=== PATIENT | male | born 1980 | race Two or more races ===

== ENCOUNTER 2017-09-30 21:38 | Emergency (ER) | payer SELFPAY ==
[2017-09-30] MEDS ORDERED: LORAZEPAM INJ 2 MG/1 ML VIAL IV ONE (22:46)
[2017-09-30] MEDS ORDERED: NORMAL SALINE 1000 ML 1,000 ML IV ONE (22:46)
[2017-09-30] MEDS ORDERED: THIAMINE HCL 100 MG in NORMAL SALINE 50 ML IV ONE (22:48)
--- NOTE | 2017-09-30 22:48 | ER Document Report ---
ED General - General Chief Complaint: ETOH Abuse Stated Complaint: POSSIBLE ALCOHOL WITHDRAW Time Seen by Provider: 09/30/17 22:42 Notes: Patient is a 37-year-old male that comes emergency department for chief complaint of alcohol withdrawals. He states that his last drink was about 10 hours ago, he states he has never felt this bad with withdrawals in the past. He states he is lightheaded, his heart is racing, and cannot stop shaking. He denies history of seizures. He states that he used to drink the last but his dad , he moved here as a result, and he has been drinking heavily since he got here. He has been given Librium for withdrawal in the past, states he took four earlier today but then started to feel worse and came to be seen. He denies any daily medications, surgeries, or past medical history other than alcohol abuse. Denies SI or HI. Denies recreational drugs, states he use to use meth but hasn't in two years. TRAVEL OUTSIDE OF THE [place] IN LAST 30 DAYS: No - Related Data Allergies/Adverse Reactions: No Known Allergies Allergy (Verified 09/30/17 21:44) Home Medications: Current Home Medications Chlordiazepoxide HCl [Librium 25 mg Capsule] 1 cap PO QID 09/30/17 [History] Past Medical History - General Information source: Patient - Social History Smoking Status: Former Smoker Frequency of alcohol use: Heavy Drug Abuse: None Lives with: Friend Family History: Reviewed & Not Pertinent Patient has suicidal ideation: No Patient has homicidal ideation: No - Immunizations Immunizations up to date: Yes Review of Systems - Review of Systems Constitutional: See HPI EENT: No symptoms reported Cardiovascular: See HPI Respiratory: No symptoms reported Gastrointestinal: See HPI Genitourinary: No symptoms reported Male Genitourinary: No symptoms reported Musculoskeletal: No symptoms reported Skin: No symptoms reported Hematologic/Lymphatic: No symptoms reported Neurological/Psychological: No symptoms reported Physical Exam - Vital signs Vitals: Temp Pulse Resp BP Pulse Ox 98.2 F 124 H 16 141/90 H 95 09/30/17 21:50 09/30/17 21:50 09/30/17 21:50 09/30/17 21:50 09/30/17 21:50 Interpretation: Normal - General General appearance: Alert, Anxious In distress: Mild - HEENT Head: Normocephalic, Atraumatic Eyes: Normal Conjunctiva: Normal Extraocular movements intact: Yes Eyelashes: Normal Pupils: PERRL Mouth/Lips: Normal Mucous membranes: Normal Pharynx: Normal Neck: Normal - Respiratory Respiratory status: No respiratory distress Chest status: Nontender Breath sounds: Normal Chest palpation: Normal - Cardiovascular Rhythm: Regular, Tachycardia Heart sounds: Normal auscultation, S1 appreciated, S2 appreciated Murmur: No - Abdominal Inspection: Normal Distension: No distension Bowel sounds: Normal Tenderness: Nontender Organomegaly: No organomegaly - Back Back: Normal, Nontender - Extremities General upper extremity: Normal inspection, Nontender, Normal color, Normal ROM , Normal temperature General lower extremity: Normal inspection, Nontender, Normal color, Normal ROM , Normal temperature, Normal weight bearing. No: Disha's sign - Neurological Neuro grossly intact: Yes Cognition: Normal Orientation: AAOx4 Paula Coma Scale Eye Opening: Spontaneous Paula Coma Scale Verbal: Oriented Paula Coma Scale Motor: Obeys Commands Newton Coma Scale Total: 15 Speech: Normal Motor strength normal: LUE, RUE, LLE, RLE Sensory: Normal - Psychological Associated symptoms: Anxious - Skin Skin Temperature: Warm Skin Moisture: Dry Skin Color: Normal Course - Re-evaluation Re-evalutation: Patient tachycardic, pale, mild shaking, restless. Ordering Ativan and IV fluids. CBC, chemistry generally unremarkable except for mildly elevated liver enzymes consistent with alcohol drinking. Urinalysis shows evidence of ketones, dehydration. Urine drug screen just showing the Ativan. Small amount of alcohol still in his system. Tachycardia resolved with IV fluids and Ativan. Given thiamine. After monitoring patient continues to do well. I did discuss with Dr. Mon, internal medicine, he feels patient does not meet admission criteria at this time. I did discuss with Dr. Tyson. Patient was given IV fluids, monitor. He continued to do well. No tachycardia, vomiting, shaking. Discussed with patient. He states he has done this before at home. He states he believes he can do it again. Given Librium, Phenergan, gabapentin. Discussed use, discussed return precautions, patient states understanding and agreement. - Vital Signs Vital signs: Temp Pulse Resp BP Pulse Ox 98.2 F 124 H 13 105/56 L 98 09/30/17 21:50 09/30/17 21:50 10/01/17 05:01 10/01/17 05:01 10/01/17 05:01 - Laboratory Result Diagrams: 09/30/17 23:13 09/30/17 23:13 Laboratory results interpreted by me: 09/30/17 10/01/17 23:13 00:54 AST 132 H ALT 92 H Total Protein 8.3 H Urine Protein 30 H Urine Ketones 80 H Urine Blood SMALL H Urine Urobilinogen 2.0 H Acetaminophen < 10 L Discharge - Discharge Clinical Impression: Alcohol dependence Qualifiers: Substance use status: unspecified alcohol-induced disorder Qualified Code(s): F10.29 - Alcohol dependence with unspecified alcohol-induced disorder Alcohol withdrawal Qualifiers: Complication of substance-induced condition: uncomplicated Qualified Code(s): F10.230 - Alcohol dependence with withdrawal, uncomplicated Condition: Stable Disposition: HOME, SELF-CARE Additional Instructions: Take prescribed medications for alcohol withdrawal as we discussed. Follow-up with primary care. Return for any concerning or worsening symptoms including vomiting, uncontrollable shakes, or if something is not right. See additional instructions below. Treatment for alcohol withdrawal includes mild sedatives, vitamins, and fluids. You need to be with someone who can help if symptoms become severe. Many patients can withdraw at home. Admission to the hospital or a detox facility may be necessary if withdrawal symptoms are severe and uncontrollable. Abstaining from alcohol is the only effective long-term treatment. If you start drinking again, you will not be able to control yourself after the first drink. Treatment programs are available. In addition, many alcoholics benefit from Alcoholics Anonymous or other support groups available through your counselor or shinto water treatment [employer] engineer. [facility] and [employer] are support groups for friends and family members of an alcoholic. Go to the emergency room if you develop persistent vomiting, severe abdominal pain, fever, shortness of breath, hallucinations, uncontrollable tremors, or seizures. Prescriptions: Chlordiazepoxide HCl [Librium 25 mg Capsule] 1 cap PO ASDIR PRN #25 capsule PRN Reason: RX: Gabapentin 2 cap PO BID PRN #30 capsule PRN Reason: Promethazine HCl [Phenergan 25 mg Tablet] 1 - 2 tab PO Q6H PRN #15 tablet PRN Reason:
[2017-09-30] MEDS ORDERED: THIAMINE HCL INJ 200 MG/2 ML VIAL ONE (23:10)
[2017-09-30 23:37] LABS: ABSOLUTE EOSINOPHILS # (AUTO) 0.1 10^3/uL (0.0-0.6); ABSOLUTE LYMPHOCYTES (AUTO) 1.3 10^3/uL (0.5-4.7); ABSOLUTE MONOCYTES (AUTO) 0.6 10^3/uL (0.1-1.4); ABSOLUTE NEUT (AUTO) 5.8 10^3/uL (1.7-8.2); BASOPHILS % (AUTO) 0.6 % (0-2); EOSINOPHILS % (AUTO) 0.7 % (0-6); HEMATOCRIT 44.6 % (37.9-51.0); HEMOGLOBIN 15.2 g/dL (13.5-17.0); LYMPHOCYTES % (AUTO) 16.3 % (13-45); MEAN CORPUSCULAR HEMOGLOBIN 31.8 pg (27.0-33.4); MEAN CORPUSCULAR HGB CONC 34.1 g/dL (32.0-36.0); MEAN CORPUSCULAR VOLUME 93 fl (80-97); MONOCYTES % (AUTO) 7.4 % (3-13); PLATELET COUNT 264 10^3/uL (150-450); RED BLOOD COUNT 4.78 10^6/uL (4.35-5.55); RED CELL DISTRIBUTION WIDTH 13.8 % (11.5-14.0); TOTAL CELLS COUNTED % (AUTO) 100 %; WHITE BLOOD COUNT 7.7 10^3/uL (4.0-10.5)
[2017-09-30 23:40] LABS: ALANINE AMINOTRANSFERASE 92 U/L (21-72); ALBUMIN 4.8 g/dL (3.5-5.0); ALCOHOL 71 mg/dL (NONE DETECTED); ALKALINE PHOSPHATASE 97 U/L (38-126); ANION GAP 16 (5-19); ASPARTATE AMINO TRANSFERASE 132 U/L (17-59); BILIRUBIN,DIRECT 0.3 mg/dL (0.0-0.4); BILIRUBIN,TOTAL 0.4 mg/dL (0.2-1.3); BLOOD UREA NITROGEN 10 mg/dL (7-20); CALCIUM 9.8 mg/dL (8.4-10.2); CARBON DIOXIDE 27 mmol/L (22-30); CHLORIDE 99 mmol/L (98-107); GLUCOSE 89 mg/dL (75-110); POTASSIUM 4.1 mmol/L (3.6-5.0); SALICYLATE 3.4 mg/dL (2.0-20.0); TOTAL PROTEIN 8.3 g/dL (6.3-8.2)
[2017-09-30 23:41] LABS: ACETAMINOPHEN < 10 ug/mL (10-30)
[2017-10-01 01:20] LABS: APPEARANCE,URINE SLIGHTLY-CLOUDY; BILIRUBIN,URINE NEGATIVE (NEGATIVE); COLOR,URINE YELLOW; GLUCOSE, URINE NEGATIVE (NEGATIVE); KETONES,URINE 80 mg/dL (NEGATIVE); LEUKOCYTE ESTERASE,URINE NEGATIVE (NEGATIVE); NITRITE,URINE NEGATIVE (NEGATIVE); PROTEIN,URINE 30 mg/dL (NEGATIVE); URINE SPECIFIC GRAVITY 1.021
[2017-10-01 01:32] LABS: URINE AMPHETAMINES SCREEN NEGATIVE; URINE BARBITURATES SCREEN NEGATIVE; URINE BENZODIAZEPINES SCREEN UNCONFIRMED POSITIVE; URINE COCAINE SCREEN NEGATIVE; URINE MARIJUANA (THC) SCREEN NEGATIVE; URINE METHADONE SCREEN NEGATIVE; URINE PHENCYCLIDINE SCREEN NEGATIVE
[2017-10-01] MEDS ORDERED: RINGERS SOLUTION,LACTATED 1,000 ML IV PRN (01:36)
[2017-10-01] MEDS ORDERED: PROMETHAZINE HCL 25 MG TABLET PO ONE (05:20)
[2017-10-01] MEDS ORDERED: LORAZEPAM 1 MG TABLET PO ONE (05:20)
[2017-10-01 06:33] VITALS: BP 131/86
--- NOTE | 2017-10-01 08:42 | EKG REPORT ---
SEVERITY:- BORDERLINE ECG - SINUS TACHYCARDIA BORDERLINE INFERIOR Q WAVES : Confirmed by: Marvin Alaniz MD 01-Oct-2017 08:42:00
== END 2017-10-01 06:38 | disposition home or self-care (01) ==
LOC: ER 21:38
DX: F10.239 Alcohol dependence with withdrawal, unspecified (principal); Z87.891 Personal history of nicotine dependence; R00.0 Tachycardia, unspecified; R45.1 Restlessness and agitation; R74.8 Abnormal levels of other serum enzymes
CPT/HCPCS: 93005; 99284; 96361; 96374; 96375; 36415; 80307 ×4; 85025; 80053; 81001; 93010; J2060; J3411; J7030; J7120